=== PATIENT | female | born 1970 | race Caucasian/White ===

== ENCOUNTER 2022-10-24 12:55 | Outpatient (CLI) | payer OTHER | END 2022-10-24 13:57 | disposition home or self-care (01) | LOC: SONOGRAMA 12:55 | PROVIDERS: ATTEND Surgery | DX: D24.2 Benign neoplasm of left breast (principal) ==

== ENCOUNTER 2024-04-15 18:02 | Emergency (ER) | payer OTHER ==
[~2024-04-15] VITALS: Ht 160 cm; Wt 69.4 kg
[2024-04-15 21:15] LABS: HEMATOCRIT 41.8 % (36.0-45.00); HEMOGLOBIN 14.6 g/dL (12.0-15.00); MEAN CELL VOLUME 88.4 fL (80.00-100.00); MEAN CORPUSCULAR HEMOGLOBIN 30.8 pg (27.00-32.0); MEAN CORPUSCULAR HGB CONC 34.9 g/dl (32.0-36.0); PLATELET COUNT 164 K/uL (150-450); RED BLOOD COUNT 4.73 M/uL (4.00-6.00)
[2024-04-15 22:56] LABS: ALBUMIN 3.7 gm/dL (3.4-5.0); BILIRUBIN TOTAL 0.37 mg/dL (0.3-1.2); CALCIUM 9.1 mg/dL (8.5-10.1); CREATININE SERUM 1.02 mg/dL (0.55-1.02); GFR 56.69; GLOBULINA 4.2 G/DL (2.4-3.5); POTASSIUM 3.57 mEq/L (3.5-5.1); TOTAL PROTEIN 7.9 gm/dL (6.4-8.2)
== END 2024-04-15 23:15 | disposition home or self-care (01) ==
LOC: ER 18:02
PROVIDERS: Preventive Medicine Public Health & General Preventive Medicine
DX: Z86.2 Personal history of diseases of the blood and blood-forming organs and certain disorders involving the immune mechanism (principal)

== ENCOUNTER 2024-10-28 09:10 | Outpatient (CLI) | payer OTHER | END 2024-10-28 09:22 | disposition home or self-care (01) | LOC: SONOGRAMA 09:10 | PROVIDERS: ATTEND General Practice | DX: M25.522 Pain in left elbow (principal); M79.632 Pain in left forearm ==

== ENCOUNTER 2024-11-14 08:39 | Outpatient (CLI) | payer OTHER | END 2024-11-14 14:15 | disposition home or self-care (01) | LOC: MRI 08:39 | PROVIDERS: ATTEND General Practice | DX: M79.662 Pain in left lower leg (principal); M25.572 Pain in left ankle and joints of left foot | CPT/HCPCS: 73721 ==